=== PATIENT | female | born 1950 | race Two or more races ===

== ENCOUNTER 2018-10-04 08:05 | Outpatient (CLI) | payer OTHER | END 2018-10-04 08:10 | disposition home or self-care (01) | LOC: LAB 08:05 | DX: M50.23 Other cervical disc displacement, cervicothoracic region (principal); M47.22 Other spondylosis with radiculopathy, cervical region; M50.220 Other cervical disc displacement, mid-cervical region, unspecified level; Z01.818 Encounter for other preprocedural examination ==

== ENCOUNTER 2018-10-07 11:00 | Outpatient (CLI) | payer OTHER ==
[2018-10-11] MEDS ORDERED: FORTAMET1000 MG PO (14:14)
[2018-10-11] MEDS ORDERED: NORVASC5 MG PO (14:15)
[2018-10-11] MEDS ORDERED: LEVO-T25 MCG PO (14:15)
[2018-10-11] MEDS ORDERED: CYMBALTA20 MG PO (14:16)
[2018-10-11] MEDS ORDERED: PEPCID20 MG PO (14:16)
[2018-10-11] MEDS ORDERED: FOLIC ACID1 MG PO (14:16)
[2018-10-11] MEDS ORDERED: SIMVASTATIN20 MG PO (14:16)
[2018-10-11] MEDS ORDERED: LISINOPRIL20 MG PO (14:17)
[2018-10-11] MEDS ORDERED: GABAPENTIN800 MG PO (14:17)
== END 2018-10-07 11:08 | disposition home or self-care (01) ==
LOC: LAB 11:00
DX: N39.0 Urinary tract infection, site not specified (principal); R82.79 Other abnormal findings on microbiological examination of urine

== ENCOUNTER 2018-10-18 08:03 | Day surgery (SDC) | payer OTHER ==
[~2018-10-18 08:03] MED LIST: CYMBALTA20 MG PO; FOLIC ACID1 MG PO; FORTAMET1000 MG PO; GABAPENTIN800 MG PO; LEVO-T25 MCG PO; LISINOPRIL20 MG PO; NORVASC5 MG PO; PEPCID20 MG PO; SIMVASTATIN20 MG PO
== END 2018-10-18 13:35 | disposition home or self-care (01) ==
LOC: CIR.AMB 08:03
DX: M50.23 Other cervical disc displacement, cervicothoracic region (principal)